=== PATIENT | female | born 2005 | race Two or more races ===

== ENCOUNTER 2025-08-15 22:03 | Emergency (ER) | payer OTHER ==
[~2025-08-15] VITALS: Ht 170.2 cm; Wt 59.0 kg
[~2025-08-15 22:03] MED LIST: ALEVE220 MG PO; ZANTAC 7575 MG PO
[2025-08-15] MEDS ORDERED: GUAIFENESIN 200 MG/10 ML BLIST.PACK PO STA (23:29)
[2025-08-15] MEDS ORDERED: METHYLPREDNISOLONE SOD SUCC 125 MG VIAL IM STA (23:29)
[2025-08-15] MEDS ORDERED: IPRATROPIUM BROMIDE 0.5 MG/2.5 ML AMPUL.NEB IH SCH (23:30)
[2025-08-15] MEDS ORDERED: LEVALBUTEROL HCL 1.25 MG/3 ML SOLUTION IH SCH (23:30)
[2025-08-16 00:16] LABS: BASO % 0.4 % (0.1-1.2); EOS # 0.32 (0.04-0.54); EOS % 4.6 % (0.7-7.0); LYMPH # 2.35 (1.18-3.74); LYMPH % 33.9 % (19.3-53.1); MEAN PLATELET VOLUME 9.10 fl (9.4-12.4); MONO # 0.57 (0.24-0.82); MONO % 8.2 % (4.7-12.5); NEUT # 3.66 (1.56-6.13); NEUT % 52.8 % (34.0-71.1); RED CELL DISTRIBUTION WIDTH 11.9 % (11.6-14.4)
[2025-08-16 01:33] LABS: COVID-19 AG NEGATIVE (NEGATIVE)
== END 2025-08-16 02:45 | disposition home or self-care (01) ==
LOC: ER 22:04
PROVIDERS: General Practice
DX: R05.8 Other specified cough (principal); Z20.822 Contact with and (suspected) exposure to COVID-19